=== PATIENT | male | born 1975 | race African-American/Black ===

== ENCOUNTER 2024-10-27 06:19 | Emergency (ER) | payer MEDICAID, SELFPAY ==
[~2024-10-27] VITALS: Ht 175.3 cm; Wt 72.4 kg
[2024-10-27] MEDS: KETOROLAC 60MG 2ML VIAL IM ONE (07:29)
[2024-10-27] MEDS: AMPICILLIN SOD/SULBACTAM SOD 3 GM in DEXTROSE 5% (D5W) MINI-BAG PLU 100 ML IV ONE (08:42)
[2024-10-27] MEDS: dexAMETHasone 20MG/5ML VIAL IV ONE (08:42)
[2024-10-27 08:49] LABS: BASO % 0.3 % (0.0-1.0); EOS # 0.2 10^3/uL (0.0-0.5); EOS % 1.7 % (0.0-3.0); HEMATOCRIT 47.4 % (42.0-52.0); HEMOGLOBIN 15.4 g/dl (13.5-17.5); LYMPH # 1.4 10^3/uL (1.5-5.0); LYMPH % 16.4 % (24.0-44.0); MEAN CORPUSCULAR HEMOGLOBIN 29.4 pg (27.0-33.0); MEAN CORPUSCULAR HGB CONC 32.5 g/dl (32.0-36.5); MEAN CORPUSCULAR VOLUME 90.5 fl (80.0-96.0); MONO # 0.8 10^3/uL (0.0-0.8); MONO % 9.4 % (2.0-8.0); NEUTROPHILS # 6.2 10^3/uL (1.5-8.5); NEUTROPHILS % 71.9 % (36.0-66.0); PLATELET COUNT, AUTOMATED 213 10^3/uL (150-450); RED BLOOD COUNT 5.24 10^6/uL (4.30-6.10); WHITE BLOOD COUNT 8.6 10^3/uL (4.0-10.0)
[2024-10-27 09:01] LABS: ERYTHROCYTE SEDIMENTATION RATE 41 mm/hr (0-15)
[2024-10-27 09:17] LABS: BLOOD UREA NITROGEN 8 MG/DL (9-23); CALCIUM LEVEL 9.5 MG/DL (8.5-10.1); CARBON DIOXIDE LEVEL 25 MMOL/L (20-31); CHLORIDE LEVEL 102 MMOL/L (98-107); CREATININE FOR GFR 0.85 MG/DL (0.70-1.30); GLOMERULAR FILTRATION RATE > 90.0 (>60); GLUCOSE, FASTING 125 MG/DL (60-100); POTASSIUM SERUM 4.2 MMOL/L (3.5-5.1); SODIUM LEVEL 135 MMOL/L (136-145)
[2024-10-27 09:18] LABS: C REACTIVE PROTEIN QUANTITATIV 1.83 MG/DL (<1.0)
[2024-10-27] MEDS ORDERED: ISOVUE-370 76% 100ML VIAL As Ordered ONE (09:27)
[2024-10-27] MEDS ORDERED: ACET-907 PO (10:26)
[2024-10-27] MEDS ORDERED: KETO10TAB PO (10:26)
[2024-10-27] MEDS ORDERED: AMOX875T2 PO (10:26)
[2024-10-27 10:36] VITALS: BP 135/90; TEMP 99.4; O2SAT 99
== END 2024-10-27 10:38 | disposition home or self-care (01) ==
LOC: M ED 06:19
DX: K04.7 Periapical abscess without sinus (principal); F17.210 Nicotine dependence, cigarettes, uncomplicated; Z79.1 Long term (current) use of non-steroidal anti-inflammatories (NSAID); Z79.2 Long term (current) use of antibiotics
CPT/HCPCS: 70487; 80048; 85025; 85652; 86140; 87040; 96365; 96372; 96375; 99284; J0295; J1100; J1885; Q9967